=== PATIENT | male | born 1995 | race Caucasian/White ===

== ENCOUNTER 2023-03-17 10:44 | Emergency (ER) | payer OTHER ==
[~2023-03-17] VITALS: Ht 162.6 cm; Wt 81.6 kg
[2023-03-17 10:45] VITALS: BP_SYST 133
[2023-03-17] MEDS ORDERED: IPRATROPIUM/ALBUTEROL SULFATE 3 ML AMPUL.NEB (DUONEB) INH ONE (11:30)
[2023-03-17] MEDS ORDERED: PRED50TA PO (12:40)
[2023-03-17] MEDS ORDERED: ALBMDI INH (12:40)
== END 2023-03-17 12:49 | disposition home or self-care (01) ==
LOC: SED 10:44
DX: J45.901 Unspecified asthma with (acute) exacerbation (principal); R05.9 Cough, unspecified; R09.81 Nasal congestion; R06.00 Dyspnea, unspecified; Z79.899 Other long term (current) drug therapy
CPT/HCPCS: 71045; 94640; 94760; 99283